=== PATIENT | female | born 1975 | race Caucasian/White ===

== ENCOUNTER 2016-06-10 02:07 | Emergency (ER) | payer SELFPAY ==
[2016-06-10 02:15] VITALS: BP 131/71
--- NOTE | 2016-06-10 02:22 | ED ---
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 Sudden onset pain shortly before arrival. Denies sensory or strength loss. No allev factors attempted. - History of Current Complaint Chief Complaint: EDExtremityUpper Stated Complaint: RIGHT WRIST INJURY Time Seen by Provider: 06/10/16 02:09 Hx Obtained From: Patient Timing: Constant, Lasting Minutes Character: Sharp Aggravating Factor(s): Flexion Alleviating Factor(s): Nothing - Allergies/Home Medications Allergies/Adverse Reactions: Allergies Allergy/AdvReac Type Severity Reaction Status Date / Time Amoxicillin Allergy Swelling Verified 04/16/12 19:30 Cefaclor [From Ceclor] Allergy Swelling Verified 04/16/12 19:30 PMH/Surg Hx/FS Hx/Imm Hx Previously Healthy: Yes Endocrine/Hematology History: Denies: Hx Anticoagulant Therapy, Hx Diabetes, Other Endocrine/Hematological Disorders Cardiovascular History: Denies: Hx Hypertension, Hx Pacemaker/ICD, Other Cardiovascular Problems/ Disorders Respiratory History: Denies: Hx Asthma, Other Respiratory Problems/Disorders GI History: Denies: Other GI Disorders History: Denies: Other Problems/Disorders Musculoskeletal History: Reports: Hx Back Problems, Other Musculoskeletal History - Sciatica Sensory History: Denies: Hx Hearing Aid, Other Sensory Impairments Opthamlomology History: Denies: Other Sensory Impairments Neurological History: Denies: Other Neuro Impairments/Disorders Psychiatric History: Denies: Hx Panic Disorder, Other Psychiatric Issues/Disorders - Surgical History Surgery Procedure, Year, and Place: TUBAL LIGATION, LUMPECTOMY RT BREAST Infectious Disease History: No Infectious Disease History: Denies: Hx Hepatitis, Hx Human Immunodeficiency Virus (HIV), Traveled Outside the [place] in Last 30 Days - Social History Alcohol Use: Occasionally Substance Use Type: Reports: Marijuana Smoking Status (MU): Light Every Day Tobacco Smoker Review of Systems Negative: Arthralgia, Myalgia, Decreased ROM, Edema Skin: Negative Neurological: Negative Negative: Weakness, Paresthesia, Numbness All Other Systems Reviewed And Are Negative: Yes Physical Exam Triage Information Reviewed: Yes Vital Signs On Initial Exam: Initial Vitals Temp Pulse Resp BP Pulse Ox 98.3 F 98 20 131/71 100 06/10/16 02:11 06/10/16 02:11 06/10/16 02:11 06/10/16 02:11 06/10/16 02:11 Vital Signs Reviewed: Yes Appearance: Positive: Well-Appearing, No Pain Distress, Well-Nourished Skin: Positive: Warm, Skin Color Reflects Adequate Perfusion, Dry Musculoskeletal: Positive: Normal, Strength/ROM Intact, Pain @ - R distal radius on the volar side with small palpable lump. Immobile with flexion and extension of each digit and the wrist. No signs of infection or fluctuance/ erythema.. Negative: Edema Left, Edema Right Neurological: Positive: Normal, Sensory/Motor Intact, Alert, Oriented to Person Place, Time, CN Intact II-III, Reflexes Intact, Normal Gait Diagnostics - Vital Signs Vital Signs Temp Pulse Resp BP Pulse Ox 06/10/16 02:11 98.3 F 98 20 131/71 100 - Laboratory Lab Statement: Any lab studies that have been ordered have been reviewed, and results considered in the medical decision making process. Course/Dx - Diagnoses Differential Diagnosis/HQI/PQRI: Positive: Arthritis, Contusion, Fracture ( Closed), Other - Unclear cause for the lump, but low concern for fracture. Hand surgery FU for further evaluation. Splint for now. 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 She is deferring analgesia in the ED. Provider Diagnoses: Wrist pain, acute Discharge - Discharge Plan Condition: Stable Disposition: HOME Patient Education Materials: Wrist Sprain (ED) Referrals: Ely Gruber MD [Primary Care Provider] - If Needed Cristina Read MD [Medical Doctor] - 3 Days Additional Instructions: Needs to have light duty due to right wrist injury.
--- NOTE | 2016-06-10 07:59 | RAD ---
INDICATION: Right wrist injury. TECHNIQUE: 3 views of the right wrist were obtained. FINDINGS: There is soft tissue swelling dorsal to the carpal bones. The bones are in normal alignment. Joint spaces appear maintained. No fracture is seen. IMPRESSION: NO EVIDENCE FOR FRACTURE. IF THE PATIENT'S SYMPTOMS PERSIST RECOMMEND IMAGING.
== END 2016-06-10 03:03 | disposition home or self-care (01) ==
LOC: ED 02:07
DX: M25.531 Pain in right wrist (principal); Z72.0 Tobacco use; X50.9XXA Other and unspecified overexertion or strenuous movements or postures, initial encounter; Y92.9 Unspecified place or not applicable
CPT/HCPCS: 99282

== ENCOUNTER 2016-08-28 15:22 | Emergency (ER) | payer SELFPAY ==
[2016-08-28 17:48] LABS: Hematocrit 41 % (35-47); Hemoglobin 13.5 g/dl (12.0-16.0); Mean Corpuscular HGB Conc 33 g/dl (31-36); Mean Corpuscular Hemoglobin 29 pg (27-31); Mean Corpuscular Volume 90 fL (80-97); Mean Platelet Volume 10 um3 (7.4-10.4); Red Blood Count 4.61 10^6/ul (4.0-5.4); Red Cell Distribution Width 14 % (10.5-15); White Blood Count 6.1 10^3/ul (3.5-10.8)
[2016-08-28 18:03] LABS: Albumin 3.8 g/dL (3.2-5.2); BUN/Creatinine Ratio 13.1 (8-20); C Reactive Protein 8.96 mg/L (< 5.00); Calcium 8.9 mg/dL (8.6-10.3); EGFR African American 141.2 (>60); EGFR Non-African American 109.8 (>60); Globulin 3.2 g/dL (2-4); Potassium 3.6 mmol/L (3.5-5.0); Total Bilirubin 0.5 mg/dL (0.2-1.0)
[2016-08-28 18:17] LABS: Manual Entry Verification CAR0052; Mono Internal Control QC Line Present
[2016-08-28] MEDS ORDERED: Clindamycin CAP* 150 MG PO ONE ×3 (18:55→19:30)
--- NOTE | 2016-08-28 19:05 | ED ---
Jarret Mccloud SooYoung, scribed for Kishor Cueto MD on 08/28/16 at 1652 . Throat Pain/Nasal Congestion - HPI Summary HPI Summary: A 40 y/o F presents to ED with c/o sudden sore throat onset last night. Associated sx: L ear pain, chills, vomiting, lethargy. States she hasn't eaten today. Denies fever. PMHx: mono, strep throat. Pt is a smoker. - History of Current Complaint Chief Complaint: EDThroatPain Time Seen by Provider: 08/28/16 16:40 Hx Obtained From: Patient Onset/Duration: Sudden Onset, Lasting Hours, Still Present Severity: Moderate - Allergies/Home Medications Allergies/Adverse Reactions: Allergies Allergy/AdvReac Type Severity Reaction Status Date / Time Amoxicillin Allergy Swelling Verified 04/16/12 19:30 Cefaclor [From Ceclor] Allergy Swelling Verified 04/16/12 19:30 PMH/Surg Hx/FS Hx/Imm Hx Previously Healthy: No Endocrine/Hematology History: Denies: Hx Anticoagulant Therapy, Hx Diabetes, Other Endocrine/Hematological Disorders Cardiovascular History: Denies: Hx Hypertension, Hx Pacemaker/ICD, Other Cardiovascular Problems/ Disorders Respiratory History: Denies: Hx Asthma, Other Respiratory Problems/Disorders GI History: Denies: Other GI Disorders History: Denies: Other Problems/Disorders Musculoskeletal History: Reports: Hx Back Problems, Other Musculoskeletal History - Sciatica Sensory History: Denies: Hx Hearing Aid, Other Sensory Impairments Opthamlomology History: Denies: Other Sensory Impairments Neurological History: Denies: Other Neuro Impairments/Disorders Psychiatric History: Denies: Hx Panic Disorder, Other Psychiatric Issues/Disorders - Surgical History Surgery Procedure, Year, and Place: TUBAL LIGATION, LUMPECTOMY RT BREAST Infectious Disease History: No Infectious Disease History: Denies: Hx Hepatitis, Hx Human Immunodeficiency Virus (HIV), Traveled Outside the [place] in Last 30 Days - Family History Known Family History: Positive: Diabetes - mother Negative: Cardiac Disease, Hypertension - Social History Occupation: Employed Full-time Lives: Alone Alcohol Use: Occasionally Hx Substance Use: Yes Substance Use Type: Reports: Marijuana Hx Tobacco Use: Yes Smoking Status (MU): Light Every Day Tobacco Smoker Review of Systems Positive: Chills. Negative: Fever Positive: Sore Throat, Ear Ache - L EAR PAIN Positive: Vomiting Neurological: Other - POS: LETHARGY All Other Systems Reviewed And Are Negative: Yes Physical Exam - Summary Physical Exam Summary: The patient is well-nourished in no acute distress and in no acute pain. The skin is warm and dry and skin color reflects adequate perfusion. HEENT: The head is normocephalic and atraumatic. The pupils are equal and reactive. The conjunctivae are clear and without drainage. Nares are patent and without drainage. Mouth reveals moist mucous membranes. The external ears are intact. The ear canals are patent and without drainage. The tympanic membranes are intact. EXUDATE ON L TONSIL, ERYTHEMATOUS AND SORE. Neck is supple with full range of motion and non-tender. There are no carotid bruits. There is no neck vein distension. ANTERIOR CHAIN ADENOPATHY. Respiratory: Chest is non-tender. Lungs are clear to auscultation and breath sounds are symmetrical and equal. Cardiovascular: Hear is regular rate and rhythm. There is no murmur or rub auscultated. There is no peripheral edema and pulses are symmetrical and equal. Abdomen: The abdomen is soft and non-tender. There are normal bowel sounds heard in all four quadrants and there is no organomegaly palpated. Musculoskeletal: There is no back pain noted. Extremities are non-tender with full range of motion. There is good capillary refill. There is no peripheral edema or calf tenderness elicited. Neurological: Patient is alert and oriented to person, place and time. The patient has symmetrical motor strength in all four extremities. Cranial nerves are grossly intact. Deep tendon reflexes are symmetrical and equal in all four extremities. Psychiatric: The patient has an appropriate affect and does not exhibit any anxiety or depression. Triage Information Reviewed: Yes Vital Signs On Initial Exam: Initial Vitals Temp Pulse Resp BP Pulse Ox 97.9 F 79 20 118/66 99 08/28/16 15:27 08/28/16 15:27 08/28/16 15:27 08/28/16 15:27 08/28/16 15:27 Vital Signs Reviewed: Yes Diagnostics - Vital Signs Vital Signs Temp Pulse Resp BP Pulse Ox 08/28/16 15:54 97.9 F 79 20 118/66 99 08/28/16 15:27 97.9 F 79 20 118/66 99 - Laboratory Lab Results: Lab Results 08/28/16 08/28/16 08/28/16 Range/Units 16:40 17:39 17:39 WBC 6.1 (3.5-10.8) 10^3/ul RBC 4.61 (4.0-5.4) 10^6/ul Hgb 13.5 (12.0-16.0) g/dl Hct 41 (35-47) % MCV 90 (80-97) fL MCH 29 (27-31) pg MCHC 33 (31-36) g/dl RDW 14 (10.5-15) % Plt Count 211 (150-450) 10^3/ul MPV 10 (7.4-10.4) um3 Neut % (Auto) 57.2 (38-83) % Lymph % (Auto) 30.9 (25-47) % [place] % (Auto) 10.0 H (1-9) % Eos % (Auto) 0.9 (0-6) % Baso % (Auto) 1.0 (0-2) % Absolute Neuts (auto) 3.5 (1.5-7.7) 10^3/ul Absolute Lymphs (auto) 1.9 (1.0-4.8) 10^3/ul Absolute Monos (auto) 0.6 (0-0.8) 10^3/ul Absolute Eos (auto) 0.1 (0-0.6) 10^3/ul Absolute Basos (auto) 0.1 (0-0.2) 10^3/ul Absolute Nucleated RBC 0 10^3/ul Nucleated RBC % 0 Sodium 138 (133-145) mmol/L Potassium 3.6 (3.5-5.0) mmol/L Chloride 107 (101-111) mmol/L Carbon Dioxide 27 (22-32) mmol/L Anion Gap 4 (2-11) mmol/L BUN 8 (6-24) mg/dL Creatinine 0.61 (0.51-0.95) mg/dL Est GFR ( Amer) 141.2 (>60) Est GFR (Non-Af Amer) 109.8 (>60) BUN/Creatinine Ratio 13.1 (8-20) Glucose 86 (70-100) mg/dL Calcium 8.9 (8.6-10.3) mg/dL Total Bilirubin 0.50 (0.2-1.0) mg/dL AST 14 (13-39) U/L ALT 11 (7-52) U/L Alkaline Phosphatase 50 (34-104) U/L C-Reactive Protein 8.96 H (< 5.00) mg/L Total Protein 7.0 (6.4-8.9) g/dL Albumin 3.8 (3.2-5.2) g/dL Globulin 3.2 (2-4) g/dL Albumin/Globulin Ratio 1.2 (1-3) Monoscreen Negative (Negative) Group A Strep Rapid Negative (Negative) Result Diagrams: 08/28/16 17:39 08/28/16 17:39 Lab Statement: Any lab studies that have been ordered have been reviewed, and results considered in the medical decision making process. EENT Course/Dx - Course Course Of Treatment: Pt is a 40 y/o F presenting with sudden sore throat, L ear pain, chills, vomiting onset last night. Denies fever. Pt is a smoker. Strep test is negative. [place] is negative. CRP is 8.96. Will D/C home with Clindamycin. - Differential Diagnoses Differential Diagnoses: Pharyngitis, Tonsilitis - Diagnoses Provider Diagnoses: Exudative tonsillitis Discharge - Discharge Plan Condition: Stable Disposition: HOME Prescriptions: Clindamycin Cap(NF) [Cleocin 300 mg Cap(NF)] 300 mg PO Q6H #40 cap Patient Education Materials: Clindamycin (By mouth) Forms: *Work Release Referrals: Ely Gruber MD [Primary Care Provider] - The documentation as recorded by the Jarret lugo SooYoung accurately reflects the service I personally performed and the decisions made by , Kishor Cueto MD.
[2016-08-28] MEDS ORDERED: Clindamycin CAP* 150 MG ONE (19:29)
[2016-08-28 19:56] VITALS: BP 107/68
== END 2016-08-28 19:55 | disposition home or self-care (01) ==
LOC: ED 15:22
DX: J03.90 Acute tonsillitis, unspecified (principal); R06.02 Shortness of breath; H92.02 Otalgia, left ear; R11.10 Vomiting, unspecified
CPT/HCPCS: 36415; 80053; 85025; 86140; 86308; 87651; 99282; A9270-GY

== ENCOUNTER 2018-04-21 20:33 | Emergency (ER) | payer SELFPAY ==
--- NOTE | 2018-04-21 22:23 | ED ---
Lower Extremity - HPI Summary HPI Summary: 42 year old female presents with bilateral feet pain for the past couple days. She denies any injury. States it hurts mostly over her plantar fascia. She does have some pain that goes from her heel to lower calf. She denies any swelling to her calf. She admits to some swelling in her ankle. No numbness or tingling. Pain is better when she pushes on the area. Ice has been helping. She states pain is worse in the morning but is better with activity. States that pain is better when she walks on her toes. 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 - History of Current Complaint Chief Complaint: EDExtremityLower Stated Complaint: BILAT FOOT PAIN Time Seen by Provider: 04/21/18 22:07 Pain Intensity: 7 - Allergies/Home Medications Allergies/Adverse Reactions: Allergies Allergy/AdvReac Type Severity Reaction Status Date / Time MS Amoxicillin [Amoxicillin] Allergy Swelling Verified 04/16/12 19:30 MS Cefaclor [From Ceclor] Allergy Swelling Verified 04/16/12 19:30 PMH/Surg Hx/FS Hx/Imm Hx Endocrine/Hematology History: Denies: Hx Anticoagulant Therapy, Hx Diabetes, Other Endocrine/Hematological Disorders Cardiovascular History: Denies: Hx Hypertension, Hx Pacemaker/ICD, Other Cardiovascular Problems/ Disorders Respiratory History: Denies: Hx Asthma, Other Respiratory Problems/Disorders GI History: Denies: Other GI Disorders History: Denies: Other Problems/Disorders Musculoskeletal History: Reports: Hx Back Problems, Other Musculoskeletal History - Sciatica Sensory History: Denies: Hx Hearing Aid, Other Sensory Impairments Opthamlomology History: Denies: Other Sensory Impairments Neurological History: Denies: Other Neuro Impairments/Disorders Psychiatric History: Denies: Hx Panic Disorder, Other Psychiatric Issues/Disorders - Surgical History Surgery Procedure, Year, and Place: TUBAL LIGATION, LUMPECTOMY RT BREAST Infectious Disease History: No Infectious Disease History: Denies: Hx Hepatitis, Hx Human Immunodeficiency Virus (HIV), Traveled Outside the [place] in Last 30 Days - Family History Known Family History: Positive: Diabetes - mother Negative: Cardiac Disease, Hypertension - Social History Alcohol Use: Occasionally Hx Substance Use: Yes Substance Use Type: Reports: Marijuana Hx Tobacco Use: Yes Smoking Status (MU): Light Every Day Tobacco Smoker Review of Systems Negative: Fever Negative: Chest Pain Negative: Shortness Of Breath Positive: Myalgia - feet pain All Other Systems Reviewed And Are Negative: Yes Physical Exam Triage Information Reviewed: Yes Vital Signs On Initial Exam: Initial Vitals Temp Pulse Resp BP Pulse Ox 98.4 F 96 22 118/76 95 04/21/18 20:36 04/21/18 20:36 04/21/18 20:36 04/21/18 20:36 04/21/18 20:36 Vital Signs Reviewed: Yes Appearance: Positive: Well-Appearing Skin: Positive: Warm, Dry Head/Face: Positive: Normal Head/Face Inspection Eyes: Positive: Normal, Conjunctiva Clear ENT: Positive: Pharynx normal Respiratory/Lung Sounds: Positive: Clear to Auscultation, Breath Sounds Present Cardiovascular: Positive: Normal, RRR Musculoskeletal: Positive: Strength/ROM Intact - feet with pain, Other - tenderness over achilles insertion on heel, tenderness over plantar fascia. good pulses, capillary refill<2secs, sensation grossly intact Neurological: Positive: Normal Psychiatric: Positive: Normal Diagnostics - Vital Signs Vital Signs Temp Pulse Resp BP Pulse Ox 04/21/18 20:36 98.4 F 96 22 118/76 95 - Laboratory Lab Statement: Any lab studies that have been ordered have been reviewed, and results considered in the medical decision making process. Lower Extremity Course/Dx - Course Course Of Treatment: 42 year old female presents with bilateral feet pain for the past couple days. She denies any injury. States it hurts mostly over her plantar fascia. She does have some pain that goes from her heel to lower calf. She denies any swelling to her calf. She admits to some swelling in her ankle. No numbness or tingling. Pain is better when she pushes on the area. Ice has been helping. She states pain is worse in the morning but is better with activity. States that pain is better when she walks on her toes. 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 On exam has tenderness over plantar fascia. Also tender over the Achilles tendon. No edema noted. Neurovascular intact. Symptoms are bilateral. Discuss could be plantar fasciitis versus Achilles tendinitis or both. Advised to rest and elevate and to follow-up with podiatry. Patient understands agrees plan. - Diagnoses Differential Diagnosis/HQI/PQRI: Positive: Fracture (Closed), Sprain, Other - plantar fascitis Provider Diagnoses: Bilateral foot pain Discharge - Sign-Out/Discharge Documenting (check all that apply): Patient Departure - Discharge Plan Condition: Good Disposition: HOME Patient Education Materials: R.I.C.E. Treatment (ED) Forms: *Work Release Referrals: Ely Gruber MD [Primary Care Provider] - Wayne Parkinson DPM [Doctor of Podiatric Medicine] - Additional Instructions: place ice on the area stretch consider otc inserts rest take tyenlol or ibuprofen every 6 hours Follow up with podiatry if no improvement return to ED if develop any new or worsening symptoms - Billing Disposition and Condition Condition: GOOD Disposition: Home
[2018-04-21 22:40] VITALS: BP 93/63
== END 2018-04-21 22:39 | disposition home or self-care (01) ==
LOC: ED 20:33
DX: M79.672 Pain in left foot (principal); M79.671 Pain in right foot; Z72.0 Tobacco use
CPT/HCPCS: 99281